=== PATIENT | female | born 2000 | race Hispanic/Latino ===

== ENCOUNTER 2023-10-29 17:01 | Emergency (ER) | payer SELFPAY ==
[2023-10-29 17:10] VITALS: BP 117/56
[2023-10-29 17:24] LABS: % Basophils 0.3 % (0-2); % Immature Granulocytes 0.5 % (0-0.5); % Lymphocytes 20.2 % (20.5-51.1); % Monocytes 4.4 % (1.7-9.3); % Neutrophils 62.6 % (42.2-75.2); Absolute Eosinophils 1.2 10^3/uL (0-0.7); Absolute Immature Granulocytes 0.1 10^3/uL (0-0.05); Absolute Monocytes 0.4 10^3/uL (0.1-0.6); Absolute Neutrophils 6.2 10^3/uL (1.4-6.5); Hemoglobin 11.9 g/dL (12.0-16.0); Mean Corpuscular Hgb 28.2 pg (27.0-31.0); Mean Corpuscular Volume 80.6 fL (81.0-99.0); Nucleated Red Blood Cells % 0 %; Platelet Count 201 10^3/uL (130-400); Red Blood Cell Count 4.22 10^6/uL (4.20-5.40); Red Cell Dist. Width 13.3 % (11.5-14.5)
[2023-10-29 17:36] LABS: HCG, Serum Qualitative Screen Positive
[2023-10-29 17:39] LABS: ALT (SGPT) 18 U/L (0-35); AST (SGOT) 22 U/L (14-36); Albumin 3.5 g/dl (3.5-5.0); Alkaline Phosphatase 70 U/L (38-126); Blood Urea Nitrogen 12 mg/dl (7-17); Calcium 8.8 mg/dl (8.4-10.2); Carbon Dioxide 19 mmol/L (22-30); Chloride 110 mmol/L (98-107); Glucose 107 mg/dl (70-99); Potassium 3.7 mmol/L (3.5-5.1); Sodium 134 mmol/L (135-145); Total Bilirubin 0.3 mg/dl (0.2-1.3); Total Protein 6.6 g/dl (6.3-8.2); eGFR > 60.00
--- NOTE | 2023-10-29 20:35 | ED.GENMED ---
History of Present Illness
General
Chief Complaint: Problems
Source: patient
Exam Limitations: none
Time Seen by Provider: 10/29/23 20:16
Travel History
Have you had any contact with someone who has COVID-19?: No
Do you have any symptoms of coronavirus? Fever > 100 degrees, chills, cough, shortness of breath, sore throat, loss of taste or smell, muscle aches, or headache?: No
History of Present Illness
History of Present Illness:
See MDM
Past History
Past History
ED Past Medical History: None
ED Past Surgical History: None
Social History
Tobacco: Non-smoker
Alcohol: None
Phy Exam
Physical Exam
Physical Exam:
See MDM
Course
Orders/Labs/Results
Orders:
Orders
10/29/23 17:12
Test Result ONCE
10/29/23 17:15
Beta HCG Quantitative Urgent
Comment: ADD ON
Comprehensive Metabolic Panel Urgent
HCG, Serum Qualitative Screen Urgent
10/29/23 17:16
Complete Blood Count/With Diff Urgent
10/29/23 17:39
Add On- LAB Urgent
Tests Added?: hcg quant
10/29/23 20:31
Acetaminophen [Tylenol] 650 mg PO NOW STA
US 1st Trimester Urgent
Comment:
Reason For Exam: abd pain and spotting
10/29/23 21:02
Type+Screen Urgent
10/29/23 22:25
Urinalysis Reflex To Culture Urgent
Date Specimen was Collected: 10/29/23
Time Specimen was Collected: 22:23
Urine Drug Abuse Screen Urgent
Date Specimen was Collected: 10/29/23
Time Specimen was Collected: 22:23
Urine Microscopic Reflex Cult Urgent
Urine Culture Urgent
CELIA Source: U
Specimen Description:
Date Specimen was Collected: 10/29/23
Time Specimen was Collected: 22:23
Abnormal Lab Results
10/29/23 10/29/23 10/29/23
17:15 17:16 22:25
Hgb 11.9 L g/dL
(12.0-16.0)
Hct 34.0 L %
(37.0-47.0)
MCV 80.6 L fL
(81.0-99.0)
Abs Immat Gran (auto) 0.1 H 10^3/uL
(0-0.05)
Absolute Eos (auto) 1.2 H 10^3/uL
(0-0.7)
Lymphocytes % 20.2 L %
(20.5-51.1)
Eosinophils % 12.0 H %
(0-6)
Sodium 134 L mmol/L
(135-145)
Chloride 110 H mmol/L
(98-107)
Carbon Dioxide 19 L mmol/L
(22-30)
Creatinine 0.5 L mg/dL
(0.6-1.0)
Glucose 107 H mg/dl
(70-99)
Leukocyte Esterase Rfl 2+ A
(Negative)
10/29/23 17:16
10/29/23 17:15
Vital Signs
Initial and Last Documented VS:
Initial Vital Signs
Temp Pulse Resp BP Pulse Ox
98.8 F 72 18 117/56 99
10/29/23 17:10 10/29/23 17:10 10/29/23 17:10 10/29/23 17:10 10/29/23 17:10
Last Documented Vital Signs
Temp Pulse Resp BP Pulse Ox
98.5 F 61 16 102/65 99
10/29/23 23:29 10/29/23 23:29 10/29/23 23:29 10/29/23 23:29 10/29/23 23:29
Information
Weeks gestation: Weeks: (20)
Location: Location: ([facility])
MDM/Problems Addressed
Differential Diagnosis Includes:
HPI and MDM Narrative:
22-year-old female presenting with abdominal cramping and vaginal spotting. Patient believes she is . This would make patient . She has not had any care.
On exam, there is very mild abdominal pain in the suprapubic region. She denies urinary symptoms. Given the pain, will obtain ultrasound. Will obtain type and screen
Physical exam
General: Well appearing and non-toxic
HEENT: protecting airway
Neck: appears supple
CV: No evidence of cyanosis
Resp: No accessory muscle use
Abd: Non-distended. Mild suprapubic tenderness. No rebound
Extremities: No deformities
Neuro: alert
Psych: Normal affect
Skin: Intact
Problems Addressed including Acute and Chronic Conditions affecting care:
1. Abdominal pain during
Acuity: acute
Prognosis: stable
Details: Will obtain ultrasound to rule out ectopic versus threatened miscarriage
Updates
Blood type O+.
Ultrasound confirms live [facility]. Discussed follow-up with clinic
Differential Diagnosis (but not limited to): Ectopic , threatened miscarriage, normal symptoms
Testing considered: CT abdomen/pelvis but she is
Drug therapy (if applicable): OTC meds, please see d/c instruction regarding Rx drugs
Amount and/or Complexity of Data Reviewed
Clinical info obtained from: Patient
External data reviewed: N/A
Labs I independently reviewed (but not limited to): Blood type O+
Radiology: Ultrasound report reviewed
Pulse Ox: not hypoxic
EKG independently reviewed: N/A
Records Management Associate: N/A
Critical Care: N/A
Risk of Complication:
Social Determinants of health: Good social support
Discussed with other providers: N/A
Escalation of Care includes Admit/Obs: After being observed in the Emergency Department, pt stable for discharge.
Occasional wrong word or 'sound a like' substitutions may have occurred due to the inherent limitations of voice recognition software. Read the chart carefully and recognize, using context, where substitutions have occurred.
*Critical Care Note
Total Time (30-74mins, 75-104mins- exclusive of procedures): Not Applicable
ED Attending Note
-
Portions of this chart may have been created with voice recognition software.� Occasional wrong word or��sound alike� substitutions may have occurred due to the inherent limitations of voice recognition software.
Discharge Plan
Departure
Patient Disposition: Home (Routine Discharge)
Date of Disposition: 10/30/23
Time of Disposition: 00:58
Patient with high blood pressure during this ER visit?: No
Discharge Problem:
Generalized abdominal pain during
Referrals:
[facility] [Outside]
Activity Restrictions/Additional Instructions:
Please return for worsening symptoms. Please start taking vitamins. Please call the [facility] [place] [facility] for follow-up.
Interventions
Interventions:
*Risk Screen - Suicide Last Done: 10/29/23 17:10
*General Assessment Last Done: 10/29/23 17:10
*Neglect/Abuse Screening Last Done: 10/29/23 17:10
*ED COVID-19 Vaccine History Last Done: 10/29/23 17:10
ED-Female Genitourinary Assessment Last Done: 10/29/23 21:09
Discharge Date and Time
Print Language: PERUVIAN
[2023-10-29] MEDS: TYLENOL 650 MG PO (20:56)
[2023-10-29 22:31] LABS: Urine Albumin Negative (Neg - Trace); Urine Bilirubin Negative (Negative); Urine Character Clear (Clear); Urine Color Yellow; Urine Glucose Negative (Negative); Urine Ketone Negative (Negative); Urine Leukocyte 2+ (Negative); Urine Nitrite Negative (Negative); Urine Occult Blood Negative (Negative); Urine Specific Gravity 1.005 (<1.030); Urine Urobilinogen Negative (Neg - 1+)
[2023-10-29 22:40] LABS: Amphetamines Negative (Negative); Barbiturates Negative (Negative); Benzodiazepines Negative (Negative); Buprenorphine Negative (Negative); Cocaine Negative (Negative); Marijuana Negative (Negative); Methadone Negative (Negative); Methamphetamines Negative (Negative); Opiates Negative (Negative); Phencyclidine Negative (Negative); Tricyclic Antidepressants Negative (Negative); Urine Red Blood Cell None Seen /HPF (0-2); Urine Squamous Cell 21-25 /LPF (Few)
[2023-10-29 23:29] VITALS: BP 102/65
== END 2023-10-30 01:15 | disposition home or self-care (01) ==
LOC: EMR 17:01
PROVIDERS: Emergency Medicine; EMERGENCY PHYSICIAN Student in an Organized Health Care Education/Training Program
DX: O26.892 Other specified pregnancy related conditions, second trimester (principal); R10.84 Generalized abdominal pain; Z3A.20 20 weeks gestation of pregnancy
CPT/HCPCS: 99285; 76801; 80053; 80306; 81003; 81015; 84702; 84703; 85025; 86850; 86900; 86901; 87086